=== PATIENT | female | born 1960 | race African-American/Black ===

== ENCOUNTER 2017-06-21 10:06 | Emergency (ER) | payer SELFPAY ==
[2017-06-21 10:14] VITALS: BP 195/95; BMI 39.0
--- NOTE | 2017-06-21 10:17 | DR.GENAD ---
HPI - PCP Primary Care Physician: Sarmad - HPI Comment HPI Comment: HISTORY BELOW. - Complaint/Symptoms Chief Complaint Doctors Comments: INCREASING KNEE AND LEG PAIN. HISTORY ARTHRTIS.OUT OF SOME OF HER MEDICATIONS. Chief Complaint:: "I have just been having a lot of knee and leg pain. It has been way worse since I have not been working. It just got really bad today." - Nurses notes reviewed Nurses Notes Review: Yes - Source History Provided: Patient - Mode of Arrival Mode of Arrival: Ambulatory - Timing Onset of Chief Complaint: 06/21/17 Came on: Gradually - Duration Duration: Constant Duration: Days - Severity Severity: Moderate PMH - PMH Past Medical History: Yes Past Medical History: Diabetes, Hypertension, Hypothyroidism Past Surgical History: Yes Surgical History: , Hysterectomy, Ortho Surgery Past Surgical History Comment: Shoulder - Rotator cuff - Family History History of Family Medical Conditions: Yes Family Medical History: Diabetes Mellitus, Coronary Artery Disease, Heart Failure, Sudden Cardiac , Hypertension - Social History Does patient currently use any type of tobacco product: No Have you used tobacco products in the last 12 months: No Type of Tobacco Use: None Does any household member use tobacco: No Alcohol Use: None Do you use any recreational Drugs:: No Lives With: Family Lives Where: Home - infectious screening In the last 2 months have you had wt loss of >10#?: NO Have you had fever, night sweats or hemotysis?: No Have you traveled outside the country in the last 6 months?: No Isolation: Standard ROS - Review of Systems Constitutional: No Symptoms Reported Eyes: No Symptoms Reported ENTM: No Symptoms Reported Respiratoy: No Symptoms Reported Cardiovascular: No Symptoms Reported Gastrointestinal/Abdominal: No Symptoms Reported Genitourinary: No Symptoms Reported Neurological: No Symptoms Reported Integumentary: No Symptoms Reported Hematologic/Lymphatic: No Symptoms Reported Endocrine: No Symptoms Reported All Other Systems: Reviewed and Negative PE - Vital Signs Vitals: Temperature 98 F Pulse Rate 78 Respiratory Rate 18 Blood Pressure 195/95 O2 Sat by Pulse Oximetry 100 - General Limitations: No Limitations General Appearance: Alert - Head Head Exam: Normal Inspection - Eyes Eye exam: Normal Appearance - ENT ENT Exam: Normal External Ear Exam Throat Exam: Normal Inspection - Neck Neck Exam: Normal Inspection - Chest Chest Inspection: Symmetric Chest Wall Rise - Respiratory Respiratory Exam: Normal Lung Sounds Bilat Respiratory Exam: Bilateral Clear to Auscultation - Cardiovascular Cardiovascular Exam: Regular Rate, Normal Rhythm, Normal Heart Sounds - Abdominal Exam Abdominal Exam: Normal Inspection - Extremities Extremities Exam: Tenderness (KNEES) - Back Back Exam: Normal Inspection - Neurologic Neurological Exam: Alert, Oriented X3 - Psychiatric Psychiatric Exam: Normal Affect, Normal Mood - Skin Skin Exam: Erythema MDM - Differential Diagnosis Differential Diagnosis: ARTHRITIS, KNEE PAIN, NEUROPATHY Course - Treatment Treatment: SEE ORDERS. IM TORADOL AND DECADRON IN ED. - Reevaluation 1st: Improved (PAIN DECREASING.) - Education/Counseling Education/Counseling: Patient, Education Educated On: Treatment, Diagnosis, Needs for Follow Up - Diagnosis Discharge Problem: Arthritis, Neuropathy Knee pain Qualifiers: Chronicity: acute Laterality: bilateral Qualified Code(s): M25.561 - Pain in right knee - Discharge Plan Disposition: 01 HOME, SELF-CARE Condition: Stable Prescriptions: Acetaminophen with Codeine [Tylenol/Codeine #3 300-30 mg] 1 tab PO Q4-6H PRN # 20 tab PRN Reason: Pain - Follow ups/Referrals Follow ups/Referrals: Theron Bañuelos [Primary Care Provider] - 3 days - Instructions Instructions: Osteoarthritis, Neuropathic Pain, Knee Pain, [id number] Additional Instructions: RETURN TO ED IF WORSE. CONTINUE MOBIC.
[2017-06-21] MEDS ORDERED: TORADOL 60 MG VIAL IM ONE (10:31)
[2017-06-21] MEDS ORDERED: DECADRON INJ IM ONE (10:31)
[2017-06-21] MEDS ORDERED: TORADOL 60 MG VIAL ONE (10:32)
[2017-06-21] MEDS ORDERED: DECADRON INJ ONE (10:32)
== END 2017-06-21 11:17 | disposition home or self-care (01) ==
LOC: ER 10:14
DX: M19.90 Unspecified osteoarthritis, unspecified site (principal); N28.9 Disorder of kidney and ureter, unspecified; M25.561 Pain in right knee
CPT/HCPCS: 96372; 99282; J1100; J1885

== ENCOUNTER → 2017-06-21 | Outpatient (CLI) | payer OTHER ==
[2016-09-30 06:17] VITALS: BP 153/84
--- NOTE | 2017-06-21 14:52 | MG ---
Examination: Bilateral screening mammogram. Clinical history: Routine screening. Technique: Digital CC and MLO views of both breasts were obtained. Computer aided detection analysis was performed and used during the interpretation. Comparison: 04/11/2016. Findings: The breasts are composed of scattered fibroglandular densities. Benign-appearing calcifications are n oted in the breasts bilaterally. No suspicious mass, area of architectural distortion or suspicious cluster of microcalcifications is noted. Impression: 1. No mammographic evidence of malignancy. BI-RADS category 2-benign findings. Recommend routine annual screening mammogram. Diagnostic CAD was utilized and reviewed. * 0 (ZERO) - ASSESSMENT INCOMPLETE; ADDITIONAL IMAGING IS NEEDED. * 0C - ASSESSMENT INCOMPLETE, NEEDS ADDITIONAL IMAGING EVALUATION AND/OR PRIOR MAMMOGRAMS FOR COMPARI SON. * 1/1 (ONE) - NEGATIVE. * 2/II (TWO) - BENIGN FINDINGS. * 3/III (THREE) - PROBABLY BENIGN FINDING; SHORT INTERVAL FOLLOW-UP SUGGESTED. * 4/IV (FOUR) - SUSPICIOUS ABNORMALITY; BIOPSY SHOULD BE CONSIDERED. * 5/V - HIGHLY SUSPICIOUS OF MALIGNANCY; BIOPSY SHOULD BE PERFORMED. * 6/ - KNOWN BIOPSY PROVEN MALIGNANCY-APPROPRIATE ACTION SHOULD BE TAKEN. A NEGATIVE X-RAY REPORT SHOULD NOT DELAY BIOPSY IF A DOMINANT OR CLINICALLY SUSPICIOUS MASS IS PRESENT; 4 TO 8 PERCENT OF CANCERS ARE NOT IDENTIFIED BY X-RAY. A NEGATIVE REPORT MAY REINFORCE THE CLINICAL IMPRESSION. ADENOSIS AND DENSE BREASTS MAY OBSCURE AN UNDERLYING NEOPLASM. Reported By:
== END ==
LOC: RAD 08:59
PROVIDERS: ATTEND Internal Medicine
DX: Z12.31 Encounter for screening mammogram for malignant neoplasm of breast (principal)
CPT/HCPCS: 77067